=== PATIENT | female | born 2005 | race Two or more races ===

== ENCOUNTER 2024-06-20 17:08 | Emergency (ER) | payer OTHER ==
[~2024-06-20] VITALS: Ht 162.6 cm; Wt 47.4 kg
[2024-06-20] MEDS: FLUORESCEIN SOD OPTH TEST STRIP OP ONE (17:26)
[2024-06-20 17:31] VITALS: BP 150/102; PULSE 118; RESP 20; TEMP 99.3; O2SAT 96
[2024-06-20] MEDS ORDERED: TOB03OS OP (17:31)
== END 2024-06-20 17:38 | disposition home or self-care (01) ==
LOC: ER 17:08
DX: S05.02XA Injury of conjunctiva and corneal abrasion without foreign body, left eye, initial encounter (principal); X58.XXXA Exposure to other specified factors, initial encounter; Y93.89 Activity, other specified; Y92.89 Other specified places as the place of occurrence of the external cause; Y99.8 Other external cause status